=== PATIENT | female | born 1965 | race Caucasian/White ===

== ENCOUNTER 2018-05-05 20:20 | Emergency (ER) | payer SELFPAY ==
[~2018-05-05] VITALS: Ht 162.6 cm; Wt 72.6 kg
[2018-05-05] MEDS ORDERED: IBUPROFEN600 MG PO (21:34)
[2018-05-05] MEDS ORDERED: ATIVAN1 MG PO (21:34)
== END 2018-05-05 21:42 | disposition home or self-care (01) ==
LOC: ED 20:20
DX: K08.89 Other specified disorders of teeth and supporting structures (principal)
CPT/HCPCS: 99282

== ENCOUNTER 2019-07-24 06:50 | Day surgery (SDC) | payer OTHER ==
[~2019-07-24] VITALS: Ht 162.6 cm; Wt 98.4 kg
--- NOTE | ~2019-07-24 | OR ---
[facility] [address] [place], [place] [address] Draft DATE OF OPERATION: 07/24/2019 SURGEON: Jignesh Simms MD PREOPERATIVE DIAGNOSIS: Carpal tunnel syndrome, left. POSTOPERATIVE DIAGNOSIS: Carpal tunnel syndrome, left. PROCEDURE: Carpal tunnel release, left. ANESTHESIA: General. SPECIMENS AND COMPLICATIONS: There were no specimens or complications. TOURNIQUET TIME: About 20 minutes. WHAT WAS DONE: The patient was taken to the operating room. After anesthesia was induced and airway secured, the patient was positioned, prepped, and draped in a routine sterile fashion. A volar incision was made beginning at the distal wrist flexion crease extending distally for about a centimeter and a half. The skin was divided sharply. Subcutaneous tissue was bluntly spread. A small self-retaining retractor was placed. The transverse volar carpal ligament was released with the tip of a #15 blade. We then used a Ragnell-Hubert retractor to elevate the distal flap and we released the rest of the nerve under direct vision. We then put the Ragnell into the proximal flap and released the distal 3 cm of the antebrachial fascia. This gave us a complete decompression of the median nerve, which was severely compromised. The wound was gently irrigated, closed in standard fashion and sterile dressings applied. The patient was awakened, taken to recovery room where she arrived in stable condition. Counts were correct and antibiotic protocols were followed. PATIENT NAME: IGNACIO MCCLELLAN OPERATIVE REPORT DATE OF : 63 REPORT #: [id number] PHYSICIAN: JIGNESH SIMMS MD PCP: NO PRIMARY CARE PHYSICIAN REPORT IS CONFIDENTIAL AND NOT TO BE RELEASED WITHOUT AUTHORIZATION [address] [address] [place] MD MAK Nguyen/LEFTYL /[id number] Copies: ~ PATIENT NAME: IGNACIO MCCLELLAN OPERATIVE REPORT DATE OF : 63 REPORT #: [id number] PHYSICIAN: JIGNESH SIMMS MD PCP: NO PRIMARY CARE PHYSICIAN REPORT IS CONFIDENTIAL AND NOT TO BE RELEASED WITHOUT AUTHORIZATION
[~2019-07-24 06:50] MED LIST: ATIVAN1 MG PO; IBUPROFEN600 MG PO; NAPROSYN500 MG PO; TRAZODONE HCL50 MG PO
--- NOTE | 2019-07-24 09:21 | NUR ---
07/24/19 0921 Gabby Amaro 0910 PATIENT RESTING QUIETLY WITH EYES CLOSED. RESPONDS TO QUESTIONS APPROPRIATELY, BUT VERY DROWSY. RESP EVEN AND UNLABORED, MASK AT 6 LITERS. DENIES PAIN OR NAUSEA. 0915 OXYGEN OFF. ROOM AIR SATS >95%. DENIES WATER AT THIS TIME. RESTING QUIETLY WITH EYES CLOSED.
--- NOTE | 2019-07-24 09:57 | NUR ---
PT RESTING-ALERT AND ORIENTED. PT IS L HANDED AND SURGERY IS TO RESTORE USE OF THIS HAND. PT ADMITTED THAT LIFE HAS BEEN CHALLENGING WITH THE LIMITATIONS A RESULT. PT SEEMED PREPARED, HAD NO QUESTIONS, DECLINED PRAYER AT THIS TIME. WILL FOLLOW NEEDED
--- NOTE | 2019-07-24 10:24 | NUR ---
PT IS BACK TO FROM PACU. SHE WAS A MAC, BUT HAS BEEN EXPERIENCING N/V AND ANXIETY. GIVEN 12.5MG PHENEGRAN AND 1MG VERSED. WATER ON BEDSIDE TABLE. SO AT THE BEDSIDE. CALL LIGHT WITHIN REACH. NO ADDITIONAL NEEDS.
--- NOTE | 2019-07-24 11:42 | NUR ---
PT AND SO ARE GIVEN VERBAL DC INSTRUCTIONS, THEY BOTH VERBALIZE UNDERSTANDING. ALL QUESTIONS ARE ANSWERED. PT IS TAKEN TO VEHICLE VIA WC BY VOLUNTEER.
== END 2019-07-24 11:40 | disposition home or self-care (01) ==
LOC: DS 06:50 → OPS 06:50 → DS 08:00 → OPS 08:00
PROVIDERS: Orthopaedic Surgery
PROC: 01N50ZZ Release Median Nerve, Open Approach (ICD-10-PCS; principal; 2019-07-24 08:00)
DX: G56.02 Carpal tunnel syndrome, left upper limb (principal); F41.9 Anxiety disorder, unspecified; I10 Essential (primary) hypertension; Z79.899 Other long term (current) drug therapy
CPT/HCPCS: J0690; J1100; J1885; J2250; J2405; J2550; J2704; J2765; J3010; J7121